=== PATIENT | male | born 1995 | race Caucasian/White ===

== ENCOUNTER 2024-05-07 09:51 | Emergency (ER) | payer OTHER ==
[2024-05-07] MEDS ORDERED: Iopamidol 300 61% 100 ML VIAL FS ONE (10:27)
[2024-05-07] MEDS ORDERED: Ketorolac Tromethamine 30 MG (1 mL) VIAL ONE (10:35)
[2024-05-07] MEDS ORDERED: Ondansetron PF 4 MG/2 ML Vial ONE (10:35)
[2024-05-07 10:53] LABS: #Basophils 0.01 10x3/uL (0.0-0.2); #Monocytes 0.84 10x3/uL (0.0-1.1); #Neutrophils 10.21 10x3/uL (1.5-8.4); %Basophils 0.1 % (0.0-2.0); %Lymphocytes 11.1 % (18.0-47.0); %Monocytes 6.7 % (0.0-10.0); %Neutrophils 81.9 % (40.0-75.0); Hematocrit 43.3 % (38.8-50.0); Hemoglobin 14.6 g/dL (13.5-17.5); Mean Corpuscular HGB CONC 33.7 g/dL (32.0-36.0); Mean Corpuscular Hemoglobin 29.5 pg (27.0-33.0); Mean Corpuscular Volume 87.5 fL (81.2-95.1); Mean Platelet Volume 10.1 fL (7.4-10.4); Platelet Count 256 10x3/uL (150-450); RBC Distribution Width 11.9 % (11.5-14.5); Red Blood Cell (RBC) Count 4.95 10x6/uL (4.32-5.72); White Blood Cell (WBC) Count 12.5 10x3/uL (3.5-10.5)
[2024-05-07 11:02] LABS: ALT (SGPT) 41 U/L (8-55); AST (SGOT) 21 U/L (5-34); Albumin 3.4 g/dL (3.5-5.0); Alkaline Phosphatase 86 U/L (40-110); Anion Gap 13 mmol/L (10-20); BUN (Urea Nitrogen) 17 mg/dL (8.9-20.6); Bilirubin, Total 0.4 mg/dL (0.2-1.2); Calc. Creatinine Clearance 0 mL/min (70-130); Calcium 9.1 mg/dL (7.8-10.44); Carbon Dioxide 21 mmol/L (22-29); Chloride 108 mmol/L (98-107); Estimated GFR 105; Globulin 3.3 g/dL (2.4-3.5); Glucose 143 mg/dL (70-105); Potassium 3.8 mmol/L (3.5-5.1); Protein, Total 6.7 g/dL (6.0-8.3); Sodium 138 mmol/L (136-145)
== END 2024-05-07 11:50 | disposition home or self-care (01) ==
LOC: CSHERS 09:51
DX: S11.21XA Laceration without foreign body of pharynx and cervical esophagus, initial encounter (principal); W44.F3XA Food entering into or through a natural orifice, initial encounter; Z55.6 Problems related to health literacy
CPT/HCPCS: 36415; 70491; 80053; 85025; 96374; 96375; J1885; J2405